=== PATIENT | female | born 1980 | race American Indian/Alaskan Native ===

== ENCOUNTER 2017-08-14 22:32 | Emergency (ER) | payer SELFPAY ==
[2017-08-15 01:26] VITALS: BP 158/91
[2017-08-15 02:25] LABS: Basophils % (Auto) 0.7 % (0.0-1.8); Eosinophils % (Auto) 0.1 % (0.0-4.3); Hematocrit 34.3 % (30.3-42.9); Hemoglobin 10.9 gm/dl (10.1-14.3); Mean Corpuscular HGB Conc 32 % (30-34); Mean Corpuscular Volume 72 fl (79-97); Platelet Count 317 K/mm3 (140-440); Red Blood Count 4.75 M/mm3 (3.65-5.03); Red Cell Distribution Width 18.5 % (13.2-15.2); White Blood Count 12.8 K/mm3 (4.5-11.0)
[2017-08-15 02:31] LABS: Mean Corpuscular Hemoglobin 23 pg (28-32)
[2017-08-15 02:34] LABS: INR 0.95 (0.87-1.13)
[2017-08-15 02:35] LABS: Partial Thromboplastin Time 29.8 Sec. (24.2-36.6)
[2017-08-15 03:04] LABS: Anion Gap 25 mmol/L; BUN/Creatinine Ratio 15; Blood Urea Nitrogen 12 mg/dL (7-17); Calcium 9.1 mg/dL (8.4-10.2); Carbon Dioxide 14 mmol/L (22-30); Chloride 101.8 mmol/L (98-107); Glucose 118 mg/dL (65-100); Sodium 137 mmol/L (137-145)
== END 2017-08-15 04:35 | disposition left against medical advice (07) ==
LOC: ED 22:32
DX: R07.9 Chest pain, unspecified (principal); Z53.21 Procedure and treatment not carried out due to patient leaving prior to being seen by health care provider
CPT/HCPCS: 36415; 80048; 83880; 84484; 84703; 85025; 85610; 85730; 93005; 93010

== ENCOUNTER 2018-01-31 20:44 | Emergency (ER) | payer SELFPAY ==
[2018-01-31] MEDS ORDERED: ASPIRIN PO ONE (20:51)
[2018-01-31 21:16] VITALS: BP 186/80
[2018-01-31 21:19] LABS: Basophils % (Auto) 0.4 % (0.0-1.8); Eosinophils % (Auto) 0.1 % (0.0-4.3); Hematocrit 34.3 % (30.3-42.9); Hemoglobin 10.6 gm/dl (10.1-14.3); Lymphocytes # (Auto) 1.2 K/mm3 (1.2-5.4); Lymphocytes % (Auto) 9.8 % (13.4-35.0); Mean Corpuscular HGB Conc 31 % (30-34); Mean Corpuscular Volume 71 fl (79-97); Monocytes # (Auto) 0.4 K/mm3 (0.0-0.8); Monocytes % (Auto) 3.4 % (0.0-7.3); Platelet Count 278 K/mm3 (140-440); Red Cell Distribution Width 19.7 % (13.2-15.2)
[2018-01-31 21:22] LABS: Mean Corpuscular Hemoglobin 22 pg (28-32)
[2018-01-31 21:39] LABS: BUN/Creatinine Ratio 16; Blood Urea Nitrogen 13 mg/dL (7-17); Calcium 9.4 mg/dL (8.4-10.2); Hemolysis Index 28
== END 2018-01-31 21:28 | disposition left against medical advice (07) ==
LOC: ED 20:44
DX: R07.9 Chest pain, unspecified (principal); Z53.21 Procedure and treatment not carried out due to patient leaving prior to being seen by health care provider
CPT/HCPCS: 36415; 80048; 84484; 85025; 93005; 93010